=== PATIENT | female | born 1935 | race Caucasian/White ===

== ENCOUNTER 2016-12-29 07:48 | Outpatient (CLI) | payer MEDICARE, BC ==
[2016-12-29] MEDS ORDERED: Gadobenate Dimeglumine 529 MG/1 ML (20ML VIAL) ONE (14:00)
--- NOTE | 2016-12-29 15:29 | MRI ---
BRAIN MRI: Date: 12/29/16 CLINICAL HISTORY: Cognitive impairment, so stated. FINDINGS: Age-appropriate size of ventricular system. 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 No evidence of territorial infarction. There is no pathologic intra-axial enhancement. Skull base flow-voids are patent. The ak chin intraocular lenses are atrophied. There is mild mucosal thickening of the paranasal sinuses. IMPRESSION: No acute intracranial abnormalities. POS: [facility]
== END 2016-12-29 07:49 | disposition home or self-care (01) ==
LOC: MRI 07:48
PROVIDERS: ATTEND Psychiatry & Neurology Neurology
DX: G31.84 Mild cognitive impairment of uncertain or unknown etiology (principal)
CPT/HCPCS: 70553; A9579

== ENCOUNTER 2020-04-24 02:23 | Emergency (ER) | payer BC, MEDICARE ==
[2020-04-24 04:10] LABS: Bacteria/HPF None Seen HPF (None Seen); Bilirubin Negative (Negative); Blood, Urine Trace (Negative); Clarity Clear (Clear); Glucose, Urine (Dipstick) Normal (Negative); Ketone, Urine Negative (Negative); Leukocyte Negative Leu/uL (Negative); Nitrite Negative (Negative); Protein, Urine (Dipstick) Negative (Neg-Trace); RBC/HPF 0-3 HPF (0-3); Specific Gravity, Urine 1.008 (1.002-1.036); Squamous Epithelial 0-3 HPF (0-3); Urobilinogen Normal mg/dL (Less than 2); WBC/HPF 0-3 HPF (0-3); pH, Urine 6.5 (5.0-9.0)
== END 2020-04-24 04:25 | disposition home or self-care (01) ==
LOC: ERS 02:23
DX: F03.90 Unspecified dementia, unspecified severity, without behavioral disturbance, psychotic disturbance, mood disturbance, and anxiety (principal)
CPT/HCPCS: 51701; 81003; 81015